=== PATIENT | male | born 1960 | race Caucasian/White ===

== ENCOUNTER → 2016-06-20 | Outpatient (CLI) | payer BC, OTHER ==
[2014-12-22 10:00] VITALS: BP 155/86
--- NOTE | 2016-06-20 14:11 | EKG ---
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
--- NOTE | 2016-06-20 16:18 | CARD ---
APPROVED REPORT INDICATION SOA on exertion PROCEDURE The patient underwent an Exercise Stress Test using the Manuel Protocol. Blood pressure, heart rate, a nd EKG were monitored. An Echocardiogram was performed by hazardous waste technician in four stages in quad fashion. At peak stress four se lected images were obtained and placed side by side with resting images for comparison. STRESS ECHO FINDINGS The resting Echocardiogram showed normal left ventricular contractility with an estimated Ejection Fr action of about 65 %. Normal augmentation of myocardial wall segments using a 16 segment model. Test Type: Exercise Stress Nurse/Tech: saba preston Test Indications: SOA with exertion Cardiac History and Allergies: NONE STATED, SEE EHR Medications: NONE STATED Medical History: NONE STATED, SEE EHR Resting ECG: SR Resting Heart Rate: 82 bpm Resting Blood Pressure: 123/75mmHg Pretest Chest Pain: No chest pain Nurse/Tech Notes Consent: The procedure was explained to the patient in lay terms. Informed consent was witnessed. Misha eout was entered into [employer]. History and Stress Test performed by SABA PRESTON Stress Symptoms SOA BY END OF STUDY PT WAS AT A BRISK WALK. OCCASIONAL PVC NOTED. POST EXERCISE Reason for Termination: Reached target heart rate Target HR: 139 Max HR: 142 bpm 87% of Maximum Predicted HR: 163 bpm Exercise duration: 08:05 min:sec, 3 Stage Exercise capacity: 10.0METs Max Blood Pressure: 163/87mmHg Blood Pressure response to exercise: Normal blood pressure response during stress. Heart Rate response to exercise: WNL Chest Pain: No. Arrhythmia: No. ST Change: No. INTERPRETATION Stress EKG Conclusion: The resting EKG showed a sinus rhythm with slight nonspecific ST segment dunlap es. The stress EKG showed no significant changes from baseline. No EKG evidence of stress-induced ischemia. <Conclusion> Good exercise tolerance. No chest pain with exertion. No EKG evidence of stress-induced ischemia. Normal left ventricular systolic function at rest. Normal left ventricular response to exertion with no regional wall motion abnormalities or evidence o f ischemia. Low risk exercise stress echo examination.
== END | disposition home or self-care (01) ==
LOC: ECHO 13:44
DX: Z00.00 Encounter for general adult medical examination without abnormal findings (principal); M79.604 Pain in right leg; K21.9 Gastro-esophageal reflux disease without esophagitis; R06.09 Other forms of dyspnea; K64.9 Unspecified hemorrhoids; Z87.09 Personal history of other diseases of the respiratory system; C61 Malignant neoplasm of prostate
CPT/HCPCS: 93005; 93017; 93350

== ENCOUNTER 2019-03-05 19:42 | Inpatient (IN) | payer BC ==
[~2019-03-05] VITALS: Ht 170.2 cm; Wt 74.8 kg
[2019-03-05] MEDS ORDERED: IV NORMAL SALINE 1000ML BAG 1,000 ML IV SCH (20:02)
--- NOTE | 2019-03-05 20:14 | PHYS DOC ---
Past Medical History Past Medical History: GERD Past Surgical History: No Surgical History Alcohol Use: Rarely Drug Use: None Adult General Chief Complaint Chief Complaint: ABDOMINAL PAIN HPI HPI 58-year-old male presents to the emergency department with complaints of abdominal pain. Patient has no past medical history aside from gastroesophageal reflux disease colonoscopy as well as EGD within the last 5 years. He states today he had a normal lunch after a that he presided, had 2 beers watching football subsequently developed significant abdominal cramping which brought him to his knees. He did have some nausea as well as vomiting. Patient describes the pain as sharp and continuous rate nothing makes it worse nothing makes it better. He did develop diaphoresis associated with the pain. Patient denies any diarrhea or bowel movement. Review of Systems Review of Systems Constitutional: Denies fever or chills [] Eyes: Denies change in visual acuity, redness, or eye pain [] HENT: Denies nasal congestion or sore throat [] Respiratory: Denies cough or shortness of breath [] Cardiovascular: No additional information not addressed in HPI [] GI: + abdominal pain, nausea, vomiting, no bloody stools or diarrhea [] : Denies dysuria or hematuria [] Musculoskeletal: Denies back pain or joint pain [] Integument: Denies rash or skin lesions [] Neurologic: Denies headache, focal weakness or sensory changes [] All other systems were reviewed and found to be within normal limits, except as documented in this note. Current Medications Current Medications Current Medications Medications (Trade) Dose Ordered Sig/Shana Start Time Stop Time Status Last Admin Dose Admin Info (CONTRAST GIVEN -- Rx MONITORING) 1 each PRN DAILY PRN 03/05/19 21:00 03/07/19 20:59 Iohexol (Omnipaque 300 Mg/ml) 75 ml 1X ONCE 03/05/19 21:15 03/05/19 21:16 DC 03/05/19 21:28 75 ML Morphine Sulfate (Morphine Sulfate) 4 mg 1X ONCE 03/05/19 22:00 03/05/19 22:01 03/05/19 21:36 4 MG Ondansetron HCl (Zofran) 4 mg 1X ONCE 03/05/19 22:00 03/05/19 22:01 03/05/19 21:35 4 MG Sodium Chloride 1,000 ml @ 1,000 mls/hr Q1H 03/05/19 20:02 03/05/19 21:01 DC 03/05/19 20:02 1,000 MLS/HR Allergies Allergies Allergies Coded Allergies Type Severity Reaction Last Updated Verified ciprofloxacin Allergy Intermediate 03/05/19 Yes dirithromycin Allergy Intermediate 03/05/19 Yes Physical Exam Physical Exam Constitutional: Well developed, well nourished, no acute distress, non-toxic appearance. [] HENT: Normocephalic, atraumatic, bilateral external ears normal, oropharynx moist, no oral exudates, nose normal. [] Eyes: PERRLA, EOMI, conjunctiva normal, no discharge. [] Cardiovascular:Heart rate regular rhythm, no murmur [] Lungs & Thorax: Bilateral breath sounds clear to auscultation [] Abdomen: Bowel sounds normal, soft, TTP around umbilicus and left lower quadrant, no masses, no pulsatile masses. [] Skin: Warm, dry, no erythema, no rash. [] Back: No tenderness, no CVA tenderness. [] Extremities: No tenderness, no edema. [] Neurologic: Alert and oriented X 3, no focal deficits noted. [] Psychologic: Affect normal, judgement normal, mood normal. [] Current Patient Data Vital Signs Vital Signs Date Time Temp Pulse Resp B/P (MAP) Pulse Ox O2 Delivery O2 Flow Rate FiO2 03/05/19 21:36 24 100 Room Air 03/05/19 20:31 97.6 64 125/59 (81) 97.6 Lab Values Laboratory Tests Test 03/05/19 20:30 White Blood Count 9.2 x10^3/uL (4.0-11.0) Red Blood Count 4.34 x10^6/uL (4.30-5.70) Hemoglobin 14.7 g/dL (13.0-17.5) Hematocrit 42.2 % (39.0-53.0) Mean Corpuscular Volume 97 fL (79-100) Mean Corpuscular Hemoglobin 34 pg (25-35) Mean Corpuscular Hemoglobin Concent 35 g/dL (31-37) Red Cell Distribution Width 12.9 % (11.5-14.5) Platelet Count 151 x10^3/uL (140-400) Neutrophils (%) (Auto) 86 % (31-73) H Lymphocytes (%) (Auto) 8 % (24-48) L Monocytes (%) (Auto) 5 % (0-9) Eosinophils (%) (Auto) 0 % (0-3) Basophils (%) (Auto) 0 % (0-3) Neutrophils # (Auto) 7.9 x10^3/uL (1.8-7.7) H Lymphocytes # (Auto) 0.7 x10^3/uL (1.0-4.8) L Monocytes # (Auto) 0.5 x10^3/uL (0.0-1.1) Eosinophils # (Auto) 0.0 x10^3/uL (0.0-0.7) Basophils # (Auto) 0.0 x10^3/uL (0.0-0.2) Segmented Neutrophils % 68 % (35-66) H Band Neutrophils % 24 % (0-9) H Lymphocytes % 6 % (24-48) L Monocytes % 1 % (0-10) Eosinophils % 1 % (0-5) Platelet Estimate Adequate (ADEQUATE) Large Platelets Few Sodium Level 141 mmol/L (136-145) Potassium Level 3.9 mmol/L (3.5-5.1) Chloride Level 101 mmol/L (98-107) Carbon Dioxide Level 30 mmol/L (21-32) Anion Gap 10 (6-14) Blood Urea Nitrogen 9 mg/dL (8-26) Creatinine 0.8 mg/dL (0.7-1.3) Estimated GFR (Cockcroft-Gault) 98.6 BUN/Creatinine Ratio 11 (6-20) Glucose Level 91 mg/dL (70-99) Calcium Level 9.1 mg/dL (8.5-10.1) Total Bilirubin 0.5 mg/dL (0.2-1.0) Aspartate Amino Transferase (AST) 19 U/L (15-37) Alanine Aminotransferase (ALT) 23 U/L (16-63) Alkaline Phosphatase 65 U/L (46-116) Troponin I Quantitative < 0.017 ng/mL (0.000-0.055) Total Protein 7.1 g/dL (6.4-8.2) Albumin 3.9 g/dL (3.4-5.0) Albumin/Globulin Ratio 1.2 (1.0-1.7) Lipase 59 U/L (73-393) L Laboratory Tests 03/05/19 20:30 Laboratory Tests 03/05/19 20:30 EKG EKG EKG reviewed, heart rate 72, normal axis, no evidence of ST elevation AK appreci ated interpretation time 2141[] Radiology/Procedures Radiology/Procedures [facility] [address] [place] [address] IMAGING REPORT Signed PATIENT: DEIDRE GAUTHIER WACCOUNT: [id number] : 1960 LOCATION: ER AGE: 58 SEX: M EXAM STATUS: REG ER ORD. PHYSICIAN: GUERRERO ALVARES MD REASON: abdominal pain, left lower quadrant PROCEDURE: CT ABD PELV W/ IV CONTRST ONLY EXAM: CT ABDOMEN/PELVIS WITH CONTRAST. HISTORY: Abdominal pain, left lower quadrant pain. TECHNIQUE: Computed tomography of the abdomen and pelvis was performed after the intravenous administration of 75 mL Omnipaque 300. COMPARISON: None. FINDINGS: Lung windows through the visualized portions of the bases reveal a fluid density mass just superior to the right hemidiaphragm anteriorly, measuring 2.5 x 1.9 cm. There is minimal basilar atelectasis. There is a small hiatal hernia and mild distal esophageal wall thickening. Bone windows reveal no suspicious lesions. The liver, gallbladder, spleen, pancreas, adrenal glands and kidneys are unremarkable. There are no pathologically enlarged lymph nodes. The distal colon is decompressed but there appears to be mild wall thickening. There is mild distention of small bowel loops in the pelvis. The more distal colon is decompressed. There appears to be a transition point in the left hemipelvis on image 69. IMPRESSION: 1. Findings suggesting partial small bowel obstruction with a transition point in the left hemipelvis. 2. Correlate for mild distal colitis versus luminal decompression. 3. A small fluid collection just superior to the right hemidiaphragm suggests a pleural or epicardial cyst. Follow-up could be considered in 6-12 months if long-term stability is not already known. 4. Small hiatal hernia. Correlate for mild distal esophagitis. *One or more of the following individualized dose reduction techniques were utilized for this examination: 1. Automated exposure control. 2. Adjustment of the mA and/or kV according to patient size. 3. Use of iterative reconstruction technique. Electronically signed by: Audra Duran MD (03/05/2019 9:43 PM) [facility] DICTATED and SIGNED BY: TRISH DURAN MD DATE: 03/05/192142 [] Course & Med Decision Making Course & Med Decision Making Pertinent Labs and Imaging studies reviewed. (See chart for details) []58-year-old male presents to the emergency department with complaints of abdominal pain. Patient has no past medical history aside from gastroesophageal reflux disease colonoscopy as well as EGD within the last 5 years. He states today he had a normal lunch after a that he presided, had 2 beers watching football subsequently developed significant abdominal cramping which brought him to his knees. He did have some nausea as well as vomiting. Patient describes the pain as sharp and continuous rate nothing makes it worse nothing makes it better. He did develop diaphoresis associated with the pain. Patient denies any diarrhea or bowel movement. Labs and imaging reviewed white blood cell count 9.2, hemoglobin 14.7 there is evidence of 24% bands on differential. CT reviewed with evidence of partial small bowel obstruction with the transition point in the left hemipelvis. She has not had any significant concern for intractable nausea or vomiting at this time we'll hold on NG tube. Surgical consultation placed in the ER with DR. REAL. Plan for admission to the hospitalist and observation. We'll continue IV fluids, antiemetics, pain medications. Discussed admission with patient. Dragon Disclaimer Dragon Disclaimer This electronic medical record was generated, in whole or in part, using a voice recognition dictation system. Departure Departure Impression: Primary Impression: Partial small bowel obstruction Disposition: ADMITTED INPATIENT Admitting Physician: NUSRAT Condition: IMPROVED Referrals: BRANDO SANDOVAL (PCP) GUERRERO ALVARES MD Mar 05, 2019 20:14
[2019-03-05 20:46] LABS: BASO % 0 % (0-3); EOS % 0 % (0-3); HEMATOCRIT 42.2 % (39.0-53.0); HEMOGLOBIN 14.7 g/dL (13.0-17.5); LYMPH # 0.7 x10^3/uL (1.0-4.8); LYMPH % 8 % (24-48); MEAN CORPUSCULAR HEMOGLOBIN 34 pg (25-35); MEAN CORPUSCULAR HGB CONC 35 g/dL (31-37); MEAN CORPUSCULAR VOLUME 97 fL (79-100); MONO # 0.5 x10^3/uL (0.0-1.1); MONO % 5 % (0-9); NEUT # 7.9 x10^3/uL (1.8-7.7); NEUT % 86 % (31-73); PLATELET COUNT 151 x10^3/uL (140-400); RED BLOOD COUNT 4.34 x10^6/uL (4.30-5.70); RED CELL DISTRIBUTION WIDTH 12.9 % (11.5-14.5); WHITE BLOOD COUNT 9.2 x10^3/uL (4.0-11.0)
[2019-03-05 20:55] LABS: CALCIUM 9.1 mg/dL (8.5-10.1); CREATININE 0.8 mg/dL (0.7-1.3); GFR 98.6; POTASSIUM 3.9 mmol/L (3.5-5.1)
[2019-03-05 21:00] LABS: ALBUMIN 3.9 g/dL (3.4-5.0); ALBUMIN/GLOBULIN RATIO 1.2 (1.0-1.7); TOTAL BILIRUBIN 0.5 mg/dL (0.2-1.0); TOTAL PROTEIN 7.1 g/dL (6.4-8.2)
[2019-03-05] MEDS ORDERED: CONTRAST GIVEN. MC PRN (21:00)
[2019-03-05] MEDS ORDERED: IOHEXOL 300 MG/ML 100ML VIAL. IV ONE (21:15)
[2019-03-05 21:20] LABS: % BANDS 24 % (0-9); % EOS 1 % (0-5); % LYMPHS 6 % (24-48); % MONOS 1 % (0-10); % SEGS 68 % (35-66); PLT ESTIMATE ADEQUATE (ADEQUATE)
--- NOTE | 2019-03-05 21:46 | RAD ---
EXAM: CT ABDOMEN/PELVIS WITH CONTRAST. HISTORY: Abdominal pain, left lower quadrant pain. TECHNIQUE: Computed tomography of the abdomen and pelvis was performed after the intravenous administration of 75 mL Omnipaque 300. COMPARISON: None. FINDINGS: Lung windows through the visualized portions of the bases reveal a fluid density mass just superior to the right hemidiaphragm anteriorly, measuring 2.5 x 1.9 cm. There is minimal basilar atelectasis. There is a small hiatal hernia and mild distal esophageal wall thickening. Bone windows reveal no suspicious lesions. The liver, gallbladder, spleen, pancreas, adrenal glands and kidneys are unremarkable. There are no pathologically enlarged lymph nodes. The distal colon is decompressed but there appears to be mild wall thickening. There is mild distention of small bowel loops in the pelvis. The more distal colon is decompressed. There appears to be a transition point in the left hemipelvis on image 69. IMPRESSION: 1. Findings suggesting partial small bowel obstruction with a transition point in the left hemipelvis. 2. Correlate for mild distal colitis versus luminal decompression. 3. A small fluid collection just superior to the right hemidiaphragm suggests a pleural or epicardial cyst. Follow-up could be considered in 6-12 months if long-term stability is not already known. 4. Small hiatal hernia. Correlate for mild distal esophagitis. *One or more of the following individualized dose reduction techniques were utilized for this examination: 1. Automated exposure control. 2. Adjustment of the mA and/or kV according to patient size. 3. Use of iterative reconstruction technique. Electronically signed by: Audra Duran MD (03/05/2019 9:43 PM) [facility]
[2019-03-05] MEDS ORDERED: MORPHINE SULFATE 4 MG/ML VIAL. IV ONE (22:00)
[2019-03-05] MEDS ORDERED: ONDANSETRON PF 4 MG/2 ML VIAL. IVP ONE (22:00)
[2019-03-05] MEDS ORDERED: ONDANSETRON PF 4 MG/2 ML VIAL. IV PRN (22:00)
[2019-03-05 22:30] VITALS: BP 94/56
[2019-03-05] MEDS ORDERED: IV DEXTROSE 5 %-0.45 % NACL 1,000 ML IV ONE (22:30)
--- NOTE | 2019-03-05 22:45 | NUR ---
Patient admitted from ER to room 412. Admitting dx: SBO. Patient c/o of abdominal pain for last 2 days. Patient had BM today but feels that he not emptying his colon. Patient is A&O x4. Patient is allergic to ciprofloxacin and dirithromycin. Patient is NPO. Will continue to monitor.
[2019-03-05] MEDS: MORPHINE SULFATE 2 MG/ML VIAL. IV PRN (23:41)
[2019-03-06] VITALS (7 sets, daily range): BP systolic 108–142; BP diastolic 51–75
[2019-03-06] MEDS ORDERED: INFLUENZA VAX SCREEN BY RX. MC PRN (02:45)
[2019-03-06 03:48] LABS: BASO % 0 % (0-3); EOS % 0 % (0-3); HEMATOCRIT 37.2 % (39.0-53.0); LYMPH # 0.9 x10^3/uL (1.0-4.8); LYMPH % 11 % (24-48); MEAN CORPUSCULAR HEMOGLOBIN 34 pg (25-35); MEAN CORPUSCULAR HGB CONC 35 g/dL (31-37); MEAN CORPUSCULAR VOLUME 97 fL (79-100); MONO # 0.4 x10^3/uL (0.0-1.1); MONO % 5 % (0-9); NEUT # 6.4 x10^3/uL (1.8-7.7); NEUT % 83 % (31-73); PLATELET COUNT 130 x10^3/uL (140-400); RED BLOOD COUNT 3.84 x10^6/uL (4.30-5.70); RED CELL DISTRIBUTION WIDTH 12.6 % (11.5-14.5); WHITE BLOOD COUNT 7.8 x10^3/uL (4.0-11.0)
[2019-03-06 05:53] LABS: ALBUMIN 3.2 g/dL (3.4-5.0); CALCIUM 8.2 mg/dL (8.5-10.1); CREATININE 0.8 mg/dL (0.7-1.3); GFR 98.6; POTASSIUM 4.1 mmol/L (3.5-5.1); TOTAL BILIRUBIN 0.5 mg/dL (0.2-1.0); TOTAL PROTEIN 6.3 g/dL (6.4-8.2)
[2019-03-06] MEDS: MORPHINE SULFATE 2 MG/ML VIAL. IV PRN ×7 (05:58→23:56)
--- NOTE | 2019-03-06 06:27 | EKG ---
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
--- NOTE | 2019-03-06 07:30 | NUR ---
Cleared reassessments from previous shift on EMAR.
[2019-03-06] MEDS ORDERED: FLU VAX QS 2019-20 (36MOS+)/PF 0.5 ML SYRINGE. VAX IM ONE (09:00)
--- NOTE | 2019-03-06 11:12 | PDOC2 ---
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 CT eval in the ED suggested SBO. This AM he feels better, has not had any n/v and has less pain Past Medical History Cardiovascular: No pertinent hx Pulmonary: No pertinent hx Renal/: No pertinent hx Past Surgical History Past Surgical History: No pertinent history Family History Family History: No Significant Social History No ALCOHOL: occassional Drugs: None Current Problem List Problem List Problems Medical Problems: (1) Partial small bowel obstruction Status: Acute Current Medications Current Medications Current Medications Sodium Chloride 1,000 ml @ 1,000 mls/hr Q1H IV Last administered on 03/05/19at 20:02; Start 03/05/19 at 20:02; Stop 03/05/19 at 21:01; Status DC Iohexol (Omnipaque 300 Mg/ml) 75 ml 1X ONCE IV Last administered on 03/05/19at 21:28; Start 03/05/19 at 21:15; Stop 03/05/19 at 21:16; Status DC Info (CONTRAST GIVEN -- Rx MONITORING) 1 each PRN DAILY PRN MC SEE COMMENTS; Start 03/05/19 at 21:00; Stop 03/07/19 at 20:59 Morphine Sulfate (Morphine Sulfate) 4 mg 1X ONCE IV Last administered on 03/05/19at 21:36; Start 03/05/19 at 22:00; Stop 03/05/19 at 22:01; Status DC Ondansetron HCl (Zofran) 4 mg 1X ONCE IVP Last administered on 03/05/19at 21:35; Start 03/05/19 at 22:00; Stop 03/05/19 at 22:01; Status DC Ondansetron HCl (Zofran) 4 mg PRN Q8HRS PRN IV NAUSEA/VOMITING 1ST CHOICE; S tart 03/05/19 at 22:00; Stop 03/06/19 at 21:59 Morphine Sulfate (Morphine Sulfate) 2 mg PRN Q2HR PRN IV SEVERE PAIN 7-10 Last administered on 03/06/19at 09:50; Start 03/05/19 at 22:00; Stop 03/06/19 at 21:59 Dextrose/Sodium Chloride 1,000 ml @ 100 mls/hr 1X ONCE IV Last administered on 03/05/19at 23:40; Start 03/05/19 at 22:30; Stop 03/06/19 at 08:29; Status DC Info (FLU VACCINE SCREEN per RX) 1 each PRN 1X PRN MC SEE COMMENTS; Start 03/06/19 at 02:45; Status Cancel Influenza Virus Vaccine Quadrival (Afluria Quad 2019-20 (3yr Up) Syringe) 0.5 ml ONCE ONCE VAX IM Last administered on 03/06/19at 09:48; Start 03/06/19 at 09:00; Stop 03/06/19 at 09:01; Status DC Allergies Allergies: Coded Allergies: ciprofloxacin (Verified Allergy, Intermediate, 03/05/19) dirithromycin (Verified Allergy, Intermediate, 03/05/19) ROS Gastrointestinal: Yes Nausea, Yes Vomiting, Yes Abdominal Pain Physical Exam General: Alert, Oriented X3, Cooperative, No acute distress HEENT: Atraumatic Lungs: Normal air movement Heart: Regular rate Abdomen: Soft, No tenderness Neuro: Normal speech Vitals VITALS Vital Signs Date Time Temp Pulse Resp B/P (MAP) Pulse Ox O2 Delivery O2 Flow Rate FiO2 03/06/19 09:50 18 Room Air 03/06/19 08:00 97.4 64 120/51 (74) 93 97.4 Labs Labs Laboratory Tests Test 03/05/19 20:30 03/05/19 22:05 03/06/19 03:30 03/06/19 04:30 White Blood Count 9.2 x10^3/uL (4.0-11.0) 7.8 x10^3/uL (4.0-11.0) Red Blood Count 4.34 x10^6/uL (4.30-5.70) 3.84 x10^6/uL (4.30-5.70) Hemoglobin 14.7 g/dL (13.0-17.5) 13.0 g/dL (13.0-17.5) Hematocrit 42.2 % (39.0-53.0) 37.2 % (39.0-53.0) Mean Corpuscular Volume 97 fL (79-100) 97 fL (79-100) Mean Corpuscular Hemoglobin 34 pg (25-35) 34 pg (25-35) Mean Corpuscular Hemoglobin Concent 35 g/dL (31-37) 35 g/dL (31-37) Red Cell Distribution Width 12.9 % (11.5-14.5) 12.6 % (11.5-14.5) Platelet Count 151 x10^3/uL (140-400) 130 x10^3/uL (140-400) Neutrophils (%) (Auto) 86 % (31-73) 83 % (31-73) Lymphocytes (%) (Auto) 8 % (24-48) 11 % (24-48) Monocytes (%) (Auto) 5 % (0-9) 5 % (0-9) Eosinophils (%) (Auto) 0 % (0-3) 0 % (0-3) Basophils (%) (Auto) 0 % (0-3) 0 % (0-3) Neutrophils # (Auto) 7.9 x10^3/uL (1.8-7.7) 6.4 x10^3/uL (1.8-7.7) Lymphocytes # (Auto) 0.7 x10^3/uL (1.0-4.8) 0.9 x10^3/uL (1.0-4.8) Monocytes # (Auto) 0.5 x10^3/uL (0.0-1.1) 0.4 x10^3/uL (0.0-1.1) Eosinophils # (Auto) 0.0 x10^3/uL (0.0-0.7) 0.0 x10^3/uL (0.0-0.7) Basophils # (Auto) 0.0 x10^3/uL (0.0-0.2) 0.0 x10^3/uL (0.0-0.2) Segmented Neutrophils % 68 % (35-66) Band Neutrophils % 24 % (0-9) Lymphocytes % 6 % (24-48) Monocytes % 1 % (0-10) Eosinophils % 1 % (0-5) Platelet Estimate Adequate (ADEQUATE) Large Platelets Few Sodium Level 141 mmol/L (136-145) 141 mmol/L (136-145) Potassium Level 3.9 mmol/L (3.5-5.1) 4.1 mmol/L (3.5-5.1) Chloride Level 101 mmol/L (98-107) 104 mmol/L (98-107) Carbon Dioxide Level 30 mmol/L (21-32) 29 mmol/L (21-32) Anion Gap 10 (6-14) 8 (6-14) Blood Urea Nitrogen 9 mg/dL (8-26) 9 mg/dL (8-26) Creatinine 0.8 mg/dL (0.7-1.3) 0.8 mg/dL (0.7-1.3) Estimated GFR (Cockcroft-Gault) 98.6 98.6 BUN/Creatinine Ratio 11 (6-20) 11 (6-20) Glucose Level 91 mg/dL (70-99) 110 mg/dL (70-99) Calcium Level 9.1 mg/dL (8.5-10.1) 8.2 mg/dL (8.5-10.1) Total Bilirubin 0.5 mg/dL (0.2-1.0) 0.5 mg/dL (0.2-1.0) Aspartate Amino Transf (AST/SGOT) 19 U/L (15-37) 16 U/L (15-37) Alanine Aminotransferase (ALT/SGPT) 23 U/L (16-63) 15 U/L (16-63) Alkaline Phosphatase 65 U/L (46-116) 54 U/L (46-116) Troponin I Quantitative < 0.017 ng/mL (0.000-0.055) Total Protein 7.1 g/dL (6.4-8.2) 6.3 g/dL (6.4-8.2) Albumin 3.9 g/dL (3.4-5.0) 3.2 g/dL (3.4-5.0) Albumin/Globulin Ratio 1.2 (1.0-1.7) 1.0 (1.0-1.7) Lipase 59 U/L (73-393) Lactic Acid Level 1.1 mmol/L (0.4-2.0) Laboratory Tests Test 03/05/19 20:30 03/05/19 22:05 03/06/19 03:30 03/06/19 04:30 White Blood Count 9.2 x10^3/uL (4.0-11.0) 7.8 x10^3/uL (4.0-11.0) Red Blood Count 4.34 x10^6/uL (4.30-5.70) 3.84 x10^6/uL (4.30-5.70) Hemoglobin 14.7 g/dL (13.0-17.5) 13.0 g/dL (13.0-17.5) Hematocrit 42.2 % (39.0-53.0) 37.2 % (39.0-53.0) Mean Corpuscular Volume 97 fL (79-100) 97 fL (79-100) Mean Corpuscular Hemoglobin 34 pg (25-35) 34 pg (25-35) Mean Corpuscular Hemoglobin Concent 35 g/dL (31-37) 35 g/dL (31-37) Red Cell Distribution Width 12.9 % (11.5-14.5) 12.6 % (11.5-14.5) Platelet Count 151 x10^3/uL (140-400) 130 x10^3/uL (140-400) Neutrophils (%) (Auto) 86 % (31-73) 83 % (31-73) Lymphocytes (%) (Auto) 8 % (24-48) 11 % (24-48) Monocytes (%) (Auto) 5 % (0-9) 5 % (0-9) Eosinophils (%) (Auto) 0 % (0-3) 0 % (0-3) Basophils (%) (Auto) 0 % (0-3) 0 % (0-3) Neutrophils # (Auto) 7.9 x10^3/uL (1.8-7.7) 6.4 x10^3/uL (1.8-7.7) Lymphocytes # (Auto) 0.7 x10^3/uL (1.0-4.8) 0.9 x10^3/uL (1.0-4.8) Monocytes # (Auto) 0.5 x10^3/uL (0.0-1.1) 0.4 x10^3/uL (0.0-1.1) Eosinophils # (Auto) 0.0 x10^3/uL (0.0-0.7) 0.0 x10^3/uL (0.0-0.7) Basophils # (Auto) 0.0 x10^3/uL (0.0-0.2) 0.0 x10^3/uL (0.0-0.2) Segmented Neutrophils % 68 % (35-66) Band Neutrophils % 24 % (0-9) Lymphocytes % 6 % (24-48) Monocytes % 1 % (0-10) Eosinophils % 1 % (0-5) Platelet Estimate Adequate (ADEQUATE) Large Platelets Few Sodium Level 141 mmol/L (136-145) 141 mmol/L (136-145) Potassium Level 3.9 mmol/L (3.5-5.1) 4.1 mmol/L (3.5-5.1) Chloride Level 101 mmol/L (98-107) 104 mmol/L (98-107) Carbon Dioxide Level 30 mmol/L (21-32) 29 mmol/L (21-32) Anion Gap 10 (6-14) 8 (6-14) Blood Urea Nitrogen 9 mg/dL (8-26) 9 mg/dL (8-26) Creatinine 0.8 mg/dL (0.7-1.3) 0.8 mg/dL (0.7-1.3) Estimated GFR (Cockcroft-Gault) 98.6 98.6 BUN/Creatinine Ratio 11 (6-20) 11 (6-20) Glucose Level 91 mg/dL (70-99) 110 mg/dL (70-99) Calcium Level 9.1 mg/dL (8.5-10.1) 8.2 mg/dL (8.5-10.1) Total Bilirubin 0.5 mg/dL (0.2-1.0) 0.5 mg/dL (0.2-1.0) Aspartate Amino Transf (AST/SGOT) 19 U/L (15-37) 16 U/L (15-37) Alanine Aminotransferase (ALT/SGPT) 23 U/L (16-63) 15 U/L (16-63) Alkaline Phosphatase 65 U/L (46-116) 54 U/L (46-116) Troponin I Quantitative < 0.017 ng/mL (0.000-0.055) Total Protein 7.1 g/dL (6.4-8.2) 6.3 g/dL (6.4-8.2) Albumin 3.9 g/dL (3.4-5.0) 3.2 g/dL (3.4-5.0) Albumin/Globulin Ratio 1.2 (1.0-1.7) 1.0 (1.0-1.7) Lipase 59 U/L (73-393) Lactic Acid Level 1.1 mmol/L (0.4-2.0) Images Images CT done on presentation is reviewed Assessment/Plan Assessment/Plan abdominal pain, n/v, improved SBO vs ileus vegan clinically improved will offer clear liquids serial exams no acute surgical recs will follow Thanks for consult CARIN REAL MD Mar 06, 2019 11:12
--- NOTE | 2019-03-06 12:09 | HP ---
ADMIT DATE: 03/05/2019 CHIEF COMPLAINT: Abdominal pain. 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 He was in the [employer]. Basically, he presented with abdominal pain, had some associated nausea. He has a long history of reflux and had a colonoscopy and EGD 5 years ago. States his symptoms are worse with food, better with no food. He tried increasing home meds, but that did not work. I discussed the case with ER physician. It appears he has a small-bowel obstruction. We are going to admit the patient and consult Dr. Mejia. I just discussed the case with Dr. Mejia as well. I also talk to the nurse and the patient about the situation. PAST MEDICAL HISTORY: GERD. ALLERGIES: CIPRO AND CLARITHROMYCIN. FAMILY HISTORY: Diabetes. SOCIAL HISTORY: Does not drink, smoke or take drugs. 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 He was in the [employer], went to the [employer]. REVIEW OF SYSTEMS: GENERAL: No history of weight change, weakness or fevers. SKIN: No bruising, hair changes or rashes. EYES: No blurred, double or loss of vision. NOSE AND THROAT: No history of nosebleeds, hoarseness or sore throat. HEART: No history of palpitations, chest pain or shortness of breath on exertion. LUNGS: Denies cough, hemoptysis, wheezing or shortness of breath. GASTROINTESTINAL: He complains of abdominal pain. GENITOURINARY: No history of frequency, urgency, hesitancy or nocturia. NEUROLOGIC: Denies history of numbness, tingling, tremor or weakness. PSYCHIATRIC: No history of panic, anxiety or depression. ENDOCRINE: No history of heat or cold intolerance, polyuria or polydipsia. EXTREMITIES: Denies muscle weakness, joint pain, pain on walking or stiffness. PHYSICAL EXAMINATION: VITALS: Within normal limits and are stable. GENERAL: No apparent distress. Alert and oriented. HEENT: Head is normocephalic, atraumatic, pupils were equally round and reactive to light and accommodation. NECK: Supple, no JVD, no thyromegaly was noted. LUNGS: Clear to auscultation in all lung magdaleno without rhonchi or wheezing. HEART: RRR, S1, S2 present. Peripheral pulses intact, no obvious murmurs were noted. ABDOMEN: Soft, nontender. Positive bowel sounds no organomegaly, normal bowel sounds. EXTREMITIES: Without any cyanosis, clubbing, or edema. Pedal pulses intact, Homans sign is negative. NEUROLOGIC: Normal speech, normal tone. A & O x3, moves all extremities, no obvious focal deficits. PSYCHIATRIC: Normal affect, normal mood. Stable. SKIN: No ulcerations or rashes, good skin turgor, no jaundice. VASCULAR: Good capillary refill, neurovascular bundle appears to be intact. IMAGING: CT of the abdomen showed a possible partial small bowel obstruction. LABORATORY DATA: White count is 7, hemoglobin 13, platelets 130. Electrolytes are normal. ASSESSMENT AND PLAN: Small-bowel obstruction. The patient has been admitted where we made him n.p.o. This morning is slightly better. We are going to try some clear liquids. We did consult Dr. Mejia. He saw the patient. Dr. Mejia and I just discuss the case. I certainly agree with his recommendations. DVT prophylaxis. Home meds, IV fluids, p.r.n. Zofran. Full code. МАРИЯ BENAVIDES DO DR: AL/clare JOB#: [id number] / [id number]
[2019-03-07] MEDS ORDERED: ONDANSETRON PF 4 MG/2 ML VIAL. IVP PRN
[2019-03-07 03:00] VITALS: BP 152/82
[2019-03-07] MEDS: MORPHINE SULFATE 2 MG/ML VIAL. IV PRN (03:15)
[2019-03-07 07:00] VITALS: BP 135/79
--- NOTE | 2019-03-07 09:11 | PDOC ---
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 03/07/19 0911: SURGICAL PROGRESS NOTE Subjective feels much better mild pain left abdomen no n/v small amount of flatus tolerating clears Vital Signs Vital Signs Date Time Temp Pulse Resp B/P (MAP) Pulse Ox O2 Delivery O2 Flow Rate FiO2 03/07/19 07:00 97.7 79 18 135/79 (97) 94 Room Air 97.7 I&O Intake and Output 03/07/19 07:00 Intake Total 350 ml Balance 350 ml Intake Oral 350 ml # Voids 4 General: Alert, Cooperative Abdomen: Soft, Other (ND, mild ttp LUQ) Labs Laboratory Tests Test 03/05/19 20:30 03/05/19 22:05 03/06/19 03:30 03/06/19 04:30 White Blood Count 9.2 x10^3/uL (4.0-11.0) 7.8 x10^3/uL (4.0-11.0) Red Blood Count 4.34 x10^6/uL (4.30-5.70) 3.84 x10^6/uL (4.30-5.70) Hemoglobin 14.7 g/dL (13.0-17.5) 13.0 g/dL (13.0-17.5) Hematocrit 42.2 % (39.0-53.0) 37.2 % (39.0-53.0) Mean Corpuscular Volume 97 fL (79-100) 97 fL (79-100) Mean Corpuscular Hemoglobin 34 pg (25-35) 34 pg (25-35) Mean Corpuscular Hemoglobin Concent 35 g/dL (31-37) 35 g/dL (31-37) Red Cell Distribution Width 12.9 % (11.5-14.5) 12.6 % (11.5-14.5) Platelet Count 151 x10^3/uL (140-400) 130 x10^3/uL (140-400) Neutrophils (%) (Auto) 86 % (31-73) 83 % (31-73) Lymphocytes (%) (Auto) 8 % (24-48) 11 % (24-48) Monocytes (%) (Auto) 5 % (0-9) 5 % (0-9) Eosinophils (%) (Auto) 0 % (0-3) 0 % (0-3) Basophils (%) (Auto) 0 % (0-3) 0 % (0-3) Neutrophils # (Auto) 7.9 x10^3/uL (1.8-7.7) 6.4 x10^3/uL (1.8-7.7) Lymphocytes # (Auto) 0.7 x10^3/uL (1.0-4.8) 0.9 x10^3/uL (1.0-4.8) Monocytes # (Auto) 0.5 x10^3/uL (0.0-1.1) 0.4 x10^3/uL (0.0-1.1) Eosinophils # (Auto) 0.0 x10^3/uL (0.0-0.7) 0.0 x10^3/uL (0.0-0.7) Basophils # (Auto) 0.0 x10^3/uL (0.0-0.2) 0.0 x10^3/uL (0.0-0.2) Segmented Neutrophils % 68 % (35-66) Band Neutrophils % 24 % (0-9) Lymphocytes % 6 % (24-48) Monocytes % 1 % (0-10) Eosinophils % 1 % (0-5) Platelet Estimate Adequate (ADEQUATE) Large Platelets Few Sodium Level 141 mmol/L (136-145) 141 mmol/L (136-145) Potassium Level 3.9 mmol/L (3.5-5.1) 4.1 mmol/L (3.5-5.1) Chloride Level 101 mmol/L (98-107) 104 mmol/L (98-107) Carbon Dioxide Level 30 mmol/L (21-32) 29 mmol/L (21-32) Anion Gap 10 (6-14) 8 (6-14) Blood Urea Nitrogen 9 mg/dL (8-26) 9 mg/dL (8-26) Creatinine 0.8 mg/dL (0.7-1.3) 0.8 mg/dL (0.7-1.3) Estimated GFR (Cockcroft-Gault) 98.6 98.6 BUN/Creatinine Ratio 11 (6-20) 11 (6-20) Glucose Level 91 mg/dL (70-99) 110 mg/dL (70-99) Calcium Level 9.1 mg/dL (8.5-10.1) 8.2 mg/dL (8.5-10.1) Total Bilirubin 0.5 mg/dL (0.2-1.0) 0.5 mg/dL (0.2-1.0) Aspartate Amino Transf (AST/SGOT) 19 U/L (15-37) 16 U/L (15-37) Alanine Aminotransferase (ALT/SGPT) 23 U/L (16-63) 15 U/L (16-63) Alkaline Phosphatase 65 U/L (46-116) 54 U/L (46-116) Troponin I Quantitative < 0.017 ng/mL (0.000-0.055) Total Protein 7.1 g/dL (6.4-8.2) 6.3 g/dL (6.4-8.2) Albumin 3.9 g/dL (3.4-5.0) 3.2 g/dL (3.4-5.0) Albumin/Globulin Ratio 1.2 (1.0-1.7) 1.0 (1.0-1.7) Lipase 59 U/L (73-393) Lactic Acid Level 1.1 mmol/L (0.4-2.0) Problem List Problems Medical Problems: (1) Partial small bowel obstruction Status: Acute Assessment/Plan sbo vs ileus appears improved will trial full liquids will check plain films CARIN REAL MD 03/07/19 1044: SURGICAL PROGRESS NOTE Assessment/Plan pt seen and examined improved plain films improved gradually advance diet, home later today or tomorrow FELICITY WETZEL APRN Mar 07, 2019 09:11 CARIN REAL MD Mar 07, 2019 10:44
--- NOTE | 2019-03-07 10:25 | RAD ---
EXAM: Frontal view of the chest, AP views of the abdomen in upright and supine positions. CLINICAL INDICATION: Small bowel obstruction versus ileus COMPARISON: None. FINDINGS and IMPRESSION: The heart is not enlarged. Mediastinal and hilar contours are normal. Linear opacities bilateral lung bases likely scarring/atelectasis. No lobar consolidation. No pleural effusion or pneumothorax. Of note the upright abdominal exam is limited by motion artifact. No abnormal small or large bowel dilatation, no evidence for obstruction. No abnormal soft tissue mass effect. No suspicious calcifications are seen. No free intraperitoneal gas. Electronically signed by: Shubham Lin MD (03/07/2019 10:22 AM) [id number]
[2019-03-07 11:00] VITALS: BP 113/67
--- NOTE | 2019-03-07 11:23 | PDOC ---
[facility] [facility] PROGRESS NOTE Chief Complaint Chief Complaint Abdominal pain GERD History of Present Illness History of Present Illness 03/07 Pt seen and examined Pt resting comfortably Pt ok with DC plan Vitals/I&O Vitals/I&O: Vital Signs Date Time Temp Pulse Resp B/P (MAP) Pulse Ox O2 Delivery O2 Flow Rate FiO2 03/07/19 07:00 97.7 79 18 135/79 (97) 94 Room Air 97.7 I & O 03/06/19 03/06/19 03/07/19 15:00 23:00 07:00 Intake Total 350 ml Balance 350 ml Physical Exam General: Alert, Cooperative Heart: Regular rate, No murmurs Lungs: Clear Abdomen: Soft, Other (ND, mild ttp LUQ) Extremities: No clubbing, No cyanosis Skin: No rashes, No breakdown Review of Systems Review of Systems: No CP, SOB Assessment and Plan Assessmemt and Plan Problems Medical Problems: (1) Partial small bowel obstruction Status: Acute Assessment Abdominal pain GERD Plan Surgery following Advance diet as directed by surgery Serial exams PT/OT HM DVT prophylaxis OK to DC if diet is tolerated and surgery ok Comment Review of Relevant I have reviewed the following items landon (where applicable) has been applied. Medications: Current Medications Medications (Trade) Dose Ordered Sig/Shana Route PRN Reason Start Time Stop Time Status Last Admin Dose Admin Morphine Sulfate (Morphine Sulfate) 2 mg PRN Q2HR PRN IV SEVERE PAIN 7-10 03/07/19 00:00 03/07/19 03:15 МАРИЯ BENAVIDES III DO Mar 07, 2019 11:23
--- NOTE | 2019-03-07 11:47 | NUR ---
SW following for discharge planning. Chart reviewed, discussed with RN. Pt is from home, has plenty of support. Pt had a abdominal series today, clear liquid diet. PT/OT ordered. SW will continue to follow for any discharge planning needs.
[2019-03-07 15:00] VITALS: BP 101/64
== END 2019-03-07 16:00 | disposition home or self-care (01) | DRG 390 ==
LOC: ER 19:42 → 4 NORTH 21:58 → EEVIPCON 21:58
PROVIDERS: ADMIT Internal Medicine; ATTEND Internal Medicine
DX: K56.600 Partial intestinal obstruction, unspecified as to cause (principal); K21.9 Gastro-esophageal reflux disease without esophagitis; Z88.8 Allergy status to other drugs, medicaments and biological substances; Z83.3 Family history of diabetes mellitus
CPT/HCPCS: 36415; 74022; 74177; 80053; 83605; 83690; 84484; 85007; 85025; 90471; 90686; 93005; 96361; 96374; 96375; J2270; J2405; J7030; Q9967; 99285-25; G0378